=== PATIENT | female | born 1975 | race Caucasian/White ===

== ENCOUNTER 2022-07-12 18:39 | Inpatient (IN) | payer OTHER, SELFPAY ==
[~2022-07-12 18:39] MED LIST: Iopamidol-370 76% 500 ML 1 ML ONE
[2022-07-12] MEDS ORDERED: levETIRAcetam 500 MG/5 ML VIAL ONE (18:47)
[2022-07-12] MEDS ORDERED: LORazepam 2 MG/ML SYR.(CARPUJECT) ONE (18:50)
[2022-07-12 19:06] LABS: #Eosinphils 0.1 thou/uL (0.0-0.7); #Lymphocytes 1.6 thou/uL (1.20-3.40); #Monocytes 0.7 thou/uL (0.11-0.59); #Neutrophils 8.6 thou/uL (1.40-6.50); %Basophils 0.2 % (0.0-1.0); %Lymphocytes 14.2 % (21.0-51.0); %Monocytes 6.5 % (0.0-10.0); Hemoglobin 7.9 g/dL (12.0-16.0); Mean Corpuscular Volume 93.8 fl (78.0-98.0); Mean Platelet Volume 8.4 fL (7.4-10.4); Platelet Count 145 10x3/uL (130-400); RBC Distribution Width 15.9 % (11.5-14.5); Red Blood Cell (RBC) Count 2.62 mill/uL (4.20-5.40)
[2022-07-12] MEDS ORDERED: PROPOFOL 200 MG/20 ML VIAL ONE (19:19)
[2022-07-12] MEDS ORDERED: Phenylephrine 10 MG/ML VIAL ONE (19:19)
[2022-07-12] MEDS ORDERED: Rocuronium Bromide 10 MG/ML (10ML VIAL) ONE (19:19)
[2022-07-12 19:25] LABS: Acetaminophen Less than 10.0 mcg/mL (10.0-30.0); Alcohol 116 mg/dL (Less than 10); CK (CPK) 233 U/L (29-168); Salicylate Less than 8.0 mg/dL (15.0-30.0)
[2022-07-12 19:27] LABS: ALT (SGPT) 100 U/L (8-55); AST (SGOT) 214 U/L (5-34); Albumin 4.3 g/dL (3.5-5.0); Alkaline Phosphatase 245 U/L (40-110); Anion Gap 23 mmol/L (10-20); BUN (Urea Nitrogen) 11 mg/dL (7.0-18.7); Bilirubin, Total 1.7 mg/dL (0.2-1.2); Calc. Creatinine Clearance 0 mL/min (70-130); Calcium 8.1 mg/dL (7.8-10.44); Carbon Dioxide 21 mmol/L (22-29); Chloride 103 mmol/L (98-107); Estimated GFR 109; Globulin 3.6 g/dL (2.4-3.5); Glucose 261 mg/dL (70-105); Lipase 35 U/L (8-78); Potassium 3.5 mmol/L (3.5-5.1); Protein, Total 7.9 g/dL (6.0-8.3); Sodium 143 mmol/L (136-145)
[2022-07-12] MEDS ORDERED: fentaNYL PF 100 MCG/2 ML SYRINGE ONE (19:38)
[2022-07-12] MEDS ORDERED: Midazolam HCl 2 mg/2 ml Vial ONE ×2 (19:38→19:40)
[2022-07-12] MEDS ORDERED: FENTANYL 50 MCG/ML 1 ML VIAL ONE (19:40)
[2022-07-12] MEDS ORDERED: PROPOFOL 20 ML ONE (19:41)
[2022-07-12] MEDS ORDERED: niCARdipine 25 MG/10 ML VIAL ONE (19:45)
[2022-07-12] MEDS ORDERED: Mannitol 12.5 GM/50 ML ONE (19:45)
[2022-07-12] MEDS ORDERED: manNITOL 20% 500 ML ONE (19:45)
[2022-07-12] MEDS ORDERED: Dextrose 5% in Water 1,000 ML IV PRN (20:06)
[2022-07-12] MEDS ORDERED: TETANUS, DIPHTHERIA TOX,ADULT (TDVAX) 0.5 ML VIAL IM ONE (20:06)
[2022-07-12] MEDS ORDERED: Dextrose 50% Abboject 50 ML SYRINGE SLOW IVP PRN (20:06)
[2022-07-12] MEDS ORDERED: FENTANYL 500 MCG/10 ML VIAL 2,000 MCG in Sodium Chloride 0.9% 60 ML IV PRN (20:09)
[2022-07-12] MEDS ORDERED: Thrombin 5000 UNITS/5 ML VIAL ONE (20:12)
[2022-07-12 20:37] LABS: SARS-CoV-2 NAA Rapid Test Not Detected (NotDetected)
[2022-07-12] MEDS ORDERED: levETIRAcetam in NS 1,000 MG in Premix Bag 1 BAG IVPB SCH (21:00)
[2022-07-12] MEDS: Famotidine/PF 20 mg/2ml Vial SLOW IVP SCH (21:15)
[2022-07-12] MEDS: Sodium Chloride 0.9% 1,000 ML IV SCH (21:30)
[2022-07-12 21:43] LABS: Phosphorus 2.6 mg/dL (2.3-4.7)
[2022-07-12 21:44] LABS: Magnesium 1.4 mg/dL (1.6-2.6)
[2022-07-12] MEDS: Fentanyl CADD 100 ML IV PRN (21:54)
[2022-07-12] MEDS: Propofol 1,000 MG/100 ML VIAL IV PRN (21:55)
[2022-07-12] MEDS: hydrALAZINE 20 MG/ML VIAL SLOW IVP PRN (22:10)
[2022-07-12] MEDS: Ondansetron PF 4 MG/2 ML Vial IVP PRN (22:15)
[2022-07-12] MEDS: levETIRAcetam 500 MG/5 ML VIAL SLOW IVP SCH (22:16)
[2022-07-12] MEDS: CEFAZOLIN 2 GM in Sodium Chloride 0.9% 100 ML IVPB SCH (22:16)
[2022-07-12 22:22] LABS: Base Excess (BEa) -0.3 mEq/L (-2.0 to +3.0); CO2 Tension 44.3 mmHg (35.0-45.0); Calcium, Ionized (arterial) 0.95 mmol/L (1.12-1.30); Carboxyhemoglobin (COHb) 1.1 gm% (0.0-3.0); Hemoglobin (Hb) 6.9 g/dL (12.0-16.0); O2 Tension (PaO2), arterial 100.2 mmHg (80.0-100.0); Potassium - ABG Lab 4.21 mmol/L (3.70-5.30); pH, Arterial 7.37 (7.35-7.45)
[2022-07-12 22:23] LABS: ALV-art Gradient 200.925 mmHg (0-20); Puncture Site ART LINE
[2022-07-12] MEDS ORDERED: Calcium Chloride 1 GM/10 ML Abboject SYRINGE IVP SCH (22:45)
[2022-07-12] MEDS ORDERED: Magnesium Sulfate In Water 4 GM in Premix Bag 1 BAG IVPB SCH (23:00)
[2022-07-12 23:13] LABS: #Lymphocytes 0.4 thou/uL (1.20-3.40); #Monocytes 0.2 thou/uL (0.11-0.59); #Neutrophils 6.5 thou/uL (1.40-6.50); %Eosinophils 0.4 % (0.0-10.0); %Lymphocytes 5.9 % (21.0-51.0); %Monocytes 3.1 % (0.0-10.0); %Neutrophils 90.6 % (42.0-75.0); Hemoglobin 6.3 g/dL (12.0-16.0); Mean Corpuscular HGB CONC 32.4 g/dL (32.0-36.0); Mean Corpuscular Hemoglobin 30.1 pg (27.0-31.0); Mean Corpuscular Volume 93.1 fl (78.0-98.0); Platelet Count 95 10x3/uL (130-400); RBC Distribution Width 15.8 % (11.5-14.5); Red Blood Cell (RBC) Count 2.08 mill/uL (4.20-5.40); White Blood Cell (WBC) Count 7.2 10x3/uL (4.8-10.8)
[2022-07-12 23:16] LABS: INR-International Normal Ratio 1.1; Prothrombin Time 14.3 sec (12.0-14.7)
[2022-07-12] MEDS: Calcium Chloride 13.6 MEQ in Sodium Chloride 0.9% 100 ML IVPB SCH (23:32)
[2022-07-12 23:51] LABS: Anion Gap 16 mmol/L (10-20); BUN (Urea Nitrogen) 8 mg/dL (7.0-18.7); Calc. Creatinine Clearance 0 mL/min (70-130); Calcium 7.4 mg/dL (7.8-10.44); Carbon Dioxide 24 mmol/L (22-29); Chloride 106 mmol/L (98-107); Estimated GFR 109; Glucose 244 mg/dL (70-105); Magnesium 1.5 mg/dL (1.6-2.6); Phosphorus 3.4 mg/dL (2.3-4.7); Potassium 4.1 mmol/L (3.5-5.1); Sodium 142 mmol/L (136-145)
[2022-07-13] MEDS: HumaLOG 300 UNITS/3 ML VIAL SC PRN ×8 (00:20→22:29)
[2022-07-13] MEDS: Calcium Chloride 13.6 MEQ in Sodium Chloride 0.9% 100 ML IVPB SCH ×4 (01:00→06:27)
[2022-07-13] MEDS: Sodium Chloride 0.9% 1,000 ML IV SCH ×3 (02:05→19:38)
[2022-07-13] MEDS ORDERED: fentaNYL PF 100 MCG/2 ML SYRINGE ONE (02:20)
[2022-07-13] MEDS ORDERED: Mannitol 12.5 GM/50 ML IV SCH (02:30)
[2022-07-13 02:32] LABS: #Basophils 0.1 thou/uL (0.0-0.2); #Lymphocytes 0.3 thou/uL (1.20-3.40); #Monocytes 0.4 thou/uL (0.11-0.59); #Neutrophils 9.1 thou/uL (1.40-6.50); %Basophils 1.4 % (0.0-1.0); %Eosinophils 0.3 % (0.0-10.0); %Lymphocytes 2.6 % (21.0-51.0); %Monocytes 3.8 % (0.0-10.0); %Neutrophils 91.9 % (42.0-75.0); Hemoglobin 8.4 g/dL (12.0-16.0); Mean Corpuscular HGB CONC 32.6 g/dL (32.0-36.0); Mean Corpuscular Hemoglobin 30.1 pg (27.0-31.0); Mean Corpuscular Volume 92.2 fl (78.0-98.0); Mean Platelet Volume 8.5 fL (7.4-10.4); Platelet Count 111 10x3/uL (130-400); RBC Distribution Width 14.8 % (11.5-14.5); Red Blood Cell (RBC) Count 2.78 mill/uL (4.20-5.40); White Blood Cell (WBC) Count 9.9 10x3/uL (4.8-10.8)
[2022-07-13 02:37] LABS: INR-International Normal Ratio 1.1; PTT 28.2 sec (22.9-36.1); Prothrombin Time 14.4 sec (12.0-14.7)
[2022-07-13] MEDS ORDERED: PROPOFOL 200 MG/20 ML VIAL ONE (02:51)
[2022-07-13] MEDS ORDERED: Rocuronium Bromide 10 MG/ML (10ML VIAL) ONE (02:51)
[2022-07-13 02:55] LABS: Anion Gap 20 mmol/L (10-20); BUN (Urea Nitrogen) 10 mg/dL (7.0-18.7); Calc. Creatinine Clearance 127 mL/min (70-130); Calcium 7.5 mg/dL (7.8-10.44); Carbon Dioxide 21 mmol/L (22-29); Chloride 107 mmol/L (98-107); Estimated GFR 110; Glucose 267 mg/dL (70-105); Magnesium 2.6 mg/dL (1.6-2.6); Potassium 3.7 mmol/L (3.5-5.1); Sodium 144 mmol/L (136-145)
[2022-07-13] MEDS: hydrALAZINE 20 MG/ML VIAL SLOW IVP PRN (04:36)
[2022-07-13] MEDS: CEFAZOLIN 2 GM in Sodium Chloride 0.9% 100 ML IVPB SCH ×3 (04:36→21:13)
[2022-07-13 05:18] LABS: Actual Bicarbonate (HCO3a) 27.5 mEq/L (22-28); Base Excess (BEa) 2.6 mEq/L (-2.0 to +3.0); CO2 Tension 43.9 mmHg (35.0-45.0); Calcium, Ionized (arterial) 0.87 mmol/L (1.12-1.30); Carboxyhemoglobin (COHb) 0.8 gm% (0.0-3.0); Hemoglobin (Hb) 9.8 g/dL (12.0-16.0); O2 Tension (PaO2), arterial 85.6 mmHg (80.0-100.0); Potassium - ABG Lab 3.97 mmol/L (3.70-5.30); pH, Arterial 7.41 (7.35-7.45)
[2022-07-13 05:19] LABS: Puncture Site ARTLINE
[2022-07-13 05:20] LABS: ALV-art Gradient 144.725 mmHg (0-20)
[2022-07-13] MEDS: Propofol 1,000 MG/100 ML VIAL IV PRN ×4 (05:42→23:39)
[2022-07-13 07:51] LABS: Actual Bicarbonate (HCO3a) 26.5 mEq/L (22-28); Base Excess (BEa) 2.3 mEq/L (-2.0 to +3.0); CO2 Tension 39.5 mmHg (35.0-45.0); Calcium, Ionized (arterial) 1.03 mmol/L (1.12-1.30); Hemoglobin (Hb) 8.9 g/dL (12.0-16.0); O2 Tension (PaO2), arterial 94.4 mmHg (80.0-100.0); Potassium - ABG Lab 3.89 mmol/L (3.70-5.30); pH, Arterial 7.45 (7.35-7.45)
[2022-07-13 07:53] LABS: ALV-art Gradient 141.425 mmHg (0-20); Puncture Site Arterial Line
[2022-07-13] MEDS ORDERED: Calcium Chloride 1 GM/10 ML Abboject SYRINGE IVP SCH (08:00)
[2022-07-13 08:46] LABS: #Lymphocytes 0.3 thou/uL (1.20-3.40); #Monocytes 0.8 thou/uL (0.11-0.59); #Neutrophils 9.7 thou/uL (1.40-6.50); %Basophils 0.2 % (0.0-1.0); %Eosinophils 0.1 % (0.0-10.0); %Lymphocytes 2.8 % (21.0-51.0); %Monocytes 7.3 % (0.0-10.0); %Neutrophils 89.7 % (42.0-75.0); Hemoglobin 8.1 g/dL (12.0-16.0); Mean Corpuscular Hemoglobin 29.8 pg (27.0-31.0); Mean Corpuscular Volume 93.3 fl (78.0-98.0); Mean Platelet Volume 8.3 fL (7.4-10.4); Platelet Count 185 10x3/uL (130-400); RBC Distribution Width 14.6 % (11.5-14.5); Red Blood Cell (RBC) Count 2.73 mill/uL (4.20-5.40); White Blood Cell (WBC) Count 10.9 10x3/uL (4.8-10.8)
[2022-07-13 08:50] LABS: Anion Gap 13 mmol/L (10-20); BUN (Urea Nitrogen) 10 mg/dL (7.0-18.7); Calc. Creatinine Clearance 120 mL/min (70-130); Calcium 8.3 mg/dL (7.8-10.44); Carbon Dioxide 27 mmol/L (22-29); Chloride 108 mmol/L (98-107); Estimated GFR 109; Glucose 258 mg/dL (70-105); Magnesium 2.8 mg/dL (1.6-2.6); Phosphorus 2.9 mg/dL (2.3-4.7); Potassium 3.9 mmol/L (3.5-5.1); Sodium 144 mmol/L (136-145)
[2022-07-13] MEDS: levETIRAcetam 500 MG/5 ML VIAL SLOW IVP SCH ×2 (09:36→19:26)
[2022-07-13] MEDS: Famotidine/PF 20 mg/2ml Vial SLOW IVP SCH ×2 (09:36→19:25)
[2022-07-13] MEDS: Folic Acid 1 MG TAB PER TUBE SCH (09:37)
[2022-07-13] MEDS: Thiamine HCl 200 MG/2 ML VIAL SLOW IVP SCH (09:39)
[2022-07-13 18:23] LABS: #Lymphocytes 0.9 thou/uL (1.20-3.40); #Monocytes 0.9 thou/uL (0.11-0.59); #Neutrophils 10.4 thou/uL (1.40-6.50); %Basophils 0.2 % (0.0-1.0); %Eosinophils 0.1 % (0.0-10.0); %Monocytes 7.3 % (0.0-10.0); %Neutrophils 85.4 % (42.0-75.0); Hemoglobin 7.2 g/dL (12.0-16.0); Mean Corpuscular HGB CONC 32.9 g/dL (32.0-36.0); Mean Corpuscular Hemoglobin 31.4 pg (27.0-31.0); Mean Corpuscular Volume 95.6 fl (78.0-98.0); Mean Platelet Volume 8.4 fL (7.4-10.4); Platelet Count 160 10x3/uL (130-400); RBC Distribution Width 14.6 % (11.5-14.5); White Blood Cell (WBC) Count 12.2 10x3/uL (4.8-10.8)
[2022-07-13 18:40] LABS: PTT 30.6 sec (22.9-36.1)
[2022-07-13 18:43] LABS: Anion Gap 13 mmol/L (10-20); BUN (Urea Nitrogen) 14 mg/dL (7.0-18.7); Calc. Creatinine Clearance 120 mL/min (70-130); Calcium 8.2 mg/dL (7.8-10.44); Carbon Dioxide 26 mmol/L (22-29); Chloride 113 mmol/L (98-107); Estimated GFR 109; Glucose 168 mg/dL (70-105); Magnesium 2.3 mg/dL (1.6-2.6); Sodium 148 mmol/L (136-145)
[2022-07-13] MEDS: Fentanyl CADD 100 ML IV PRN (18:53)
[2022-07-13] MEDS ORDERED: Potassium Phosphate 15 MMOL in Sodium Chloride 0.9% 250 ML 250 ML IVPB SCH (19:15)
[2022-07-13] MEDS: Senokot S 8.6-50 MG TAB PO SCH (19:25)
[2022-07-13] MEDS: Oxazepam 10 MG CAP PO SCH (19:26)
[2022-07-13] MEDS: Ondansetron PF 4 MG/2 ML Vial IVP PRN (19:26)
[2022-07-13] MEDS ORDERED: Oxazepam 10 MG CAP PO SCH (22:00)
[2022-07-14] MEDS ORDERED: Sodium Chloride 0.9% 1,000 ML IV SCH (01:15)
[2022-07-14] MEDS ORDERED: Hydrocortisone Sod Succ/PF 100 mg/2 ml Vial IVP SCH (01:15)
[2022-07-14] MEDS ORDERED: Midazolam HCl 2 mg/2 ml Vial SLOW IVP SCH ×2 (03:45→09:15)
[2022-07-14 04:14] LABS: #Lymphocytes 0.5 thou/uL (1.20-3.40); #Monocytes 0.6 thou/uL (0.11-0.59); #Neutrophils 7.2 thou/uL (1.40-6.50); %Basophils 0.5 % (0.0-1.0); %Eosinophils 0.2 % (0.0-10.0); %Lymphocytes 5.9 % (21.0-51.0); %Monocytes 6.8 % (0.0-10.0); %Neutrophils 86.7 % (42.0-75.0); Mean Corpuscular Hemoglobin 30.8 pg (27.0-31.0); Mean Corpuscular Volume 96.1 fl (78.0-98.0); Mean Platelet Volume 8.7 fL (7.4-10.4); Platelet Count 111 10x3/uL (130-400); RBC Distribution Width 14.6 % (11.5-14.5); Red Blood Cell (RBC) Count 2.27 mill/uL (4.20-5.40); White Blood Cell (WBC) Count 8.3 10x3/uL (4.8-10.8)
[2022-07-14] MEDS: Oxazepam 10 MG CAP PO SCH ×3 (04:53→20:01)
[2022-07-14] MEDS: CEFAZOLIN 2 GM in Sodium Chloride 0.9% 100 ML IVPB SCH ×3 (04:53→21:34)
[2022-07-14] MEDS: Sodium Chloride 0.9% 1,000 ML IV SCH (04:54)
[2022-07-14 04:55] LABS: Iron 268 ug/dL (50-170); Iron Binding Capacity, Total 256 mcg/dL (265-497); Phosphorus 2.4 mg/dL (2.3-4.7)
[2022-07-14 04:59] LABS: ALT (SGPT) 37 U/L (8-55); AST (SGOT) 59 U/L (5-34); Alkaline Phosphatase 133 U/L (40-110); Anion Gap 11 mmol/L (10-20); BUN (Urea Nitrogen) 13 mg/dL (7.0-18.7); Bilirubin, Total 1.5 mg/dL (0.2-1.2); Calc. Creatinine Clearance 140 mL/min (70-130); Calcium 7.3 mg/dL (7.8-10.44); Carbon Dioxide 24 mmol/L (22-29); Chloride 115 mmol/L (98-107); Estimated GFR 113; Globulin 2.5 g/dL (2.4-3.5); Glucose 178 mg/dL (70-105); Iron 268 ug/dL (50-170); Iron Binding Capacity, Total 258 mcg/dL (265-497); Potassium 3.9 mmol/L (3.5-5.1); Protein, Total 5.5 g/dL (6.0-8.3); Sodium 146 mmol/L (136-145)
[2022-07-14] MEDS: HumaLOG 300 UNITS/3 ML VIAL SC PRN ×3 (06:09→18:17)
[2022-07-14] MEDS: Fentanyl CADD 100 ML IV PRN (06:26)
[2022-07-14] MEDS: Propofol 1,000 MG/100 ML VIAL IV PRN (07:52)
[2022-07-14] MEDS: Hydrocortisone Sod Succ/PF 100 mg/2 ml Vial IVP SCH ×3 (08:08→19:57)
[2022-07-14] MEDS: Lactated Ringer's 1,000 ML IV SCH ×2 (08:10→16:30)
[2022-07-14] MEDS: Folic Acid 1 MG TAB PER TUBE SCH (08:11)
[2022-07-14] MEDS: Famotidine/PF 20 mg/2ml Vial SLOW IVP SCH (08:11)
[2022-07-14] MEDS: Multivitamin W/ Minerals 1 TAB PO SCH (08:11)
[2022-07-14] MEDS: Senokot S 8.6-50 MG TAB PO SCH ×2 (08:11→20:01)
[2022-07-14] MEDS: Thiamine HCl 200 MG/2 ML VIAL SLOW IVP SCH (08:12)
[2022-07-14] MEDS: levETIRAcetam 500 MG/5 ML VIAL SLOW IVP SCH ×2 (08:12→20:01)
[2022-07-14] MEDS: Polyethylene Glycol 3350 17 GM Packet PO SCH (08:12)
[2022-07-14] MEDS ORDERED: Potassium Phosphate 30 MMOL in Sodium Chloride 0.9% 250 ML 250 ML IVPB SCH (08:30)
[2022-07-14 08:36] LABS: Actual Bicarbonate (HCO3a) 27.6 mEq/L (22-28); Base Excess (BEa) 2.1 mEq/L (-2.0 to +3.0); CO2 Tension 48.1 mmHg (35.0-45.0); Calcium, Ionized (arterial) 0.97 mmol/L (1.12-1.30); Hemoglobin (Hb) 7.5 g/dL (12.0-16.0); O2 Tension (PaO2), arterial 70.2 mmHg (80.0-100.0); Potassium - ABG Lab 3.73 mmol/L (3.70-5.30); pH, Arterial 7.38 (7.35-7.45)
[2022-07-14 08:37] LABS: ALV-art Gradient 154.875 mmHg (0-20); Puncture Site Arterial Line
[2022-07-14] MEDS ORDERED: Midazolam HCl 2 mg/2 ml Vial ONE (09:08)
[2022-07-14] MEDS ORDERED: Haloperidol Lactate 5 MG/ML VIAL ONE (09:09)
[2022-07-14] MEDS ORDERED: Calcium Chloride 1 GM/10 ML Abboject SYRINGE ONE (09:13)
[2022-07-14] MEDS ORDERED: Haloperidol Lactate 5 MG/ML VIAL SLOW IVP SCH (09:15)
[2022-07-14] MEDS ORDERED: Calcium Chloride 1 GM/10 ML Abboject SYRINGE IVP SCH (09:15)
[2022-07-14] MEDS: carBAMazepine 200 MG TAB PO SCH ×2 (10:30→17:14)
[2022-07-14] MEDS ORDERED: Morphine 4 MG/ML VIAL SLOW IVP PRN (19:40)
[2022-07-14] MEDS: Famotidine 20 MG TAB PO SCH (20:01)
[2022-07-14] MEDS: Acetaminophen/Codeine 30-300mg Tablet PO PRN (21:34)
[2022-07-14] MEDS: Acetaminophen 500 MG TAB PO SCH (23:18)
[2022-07-15] MEDS: Hydrocortisone Sod Succ/PF 100 mg/2 ml Vial IVP SCH ×2 (01:15→06:29)
[2022-07-15] MEDS: Oxazepam 10 MG CAP PO SCH ×3 (03:20→20:30)
[2022-07-15] MEDS: Lactated Ringer's 1,000 ML IV SCH (03:23)
[2022-07-15] MEDS: Acetaminophen/Codeine 30-300mg Tablet PO PRN (03:24)
[2022-07-15] MEDS: HumaLOG 300 UNITS/3 ML VIAL SC PRN ×5 (03:42→23:27)
[2022-07-15 04:35] LABS: #Lymphocytes 0.7 thou/uL (1.20-3.40); #Monocytes 0.6 thou/uL (0.11-0.59); #Neutrophils 10.1 thou/uL (1.40-6.50); %Eosinophils 0.3 % (0.0-10.0); %Lymphocytes 6.1 % (21.0-51.0); %Monocytes 5.6 % (0.0-10.0); Hemoglobin 8.7 g/dL (12.0-16.0); Mean Corpuscular HGB CONC 32.7 g/dL (32.0-36.0); Mean Corpuscular Hemoglobin 30.9 pg (27.0-31.0); Mean Corpuscular Volume 94.6 fl (78.0-98.0); Platelet Count 142 10x3/uL (130-400); RBC Distribution Width 14.9 % (11.5-14.5); Red Blood Cell (RBC) Count 2.83 mill/uL (4.20-5.40); White Blood Cell (WBC) Count 11.4 10x3/uL (4.8-10.8)
[2022-07-15 05:07] LABS: Anion Gap 14 mmol/L (10-20); BUN (Urea Nitrogen) 9 mg/dL (7.0-18.7); Calc. Creatinine Clearance 134 mL/min (70-130); Calcium 8.7 mg/dL (7.8-10.44); Carbon Dioxide 25 mmol/L (22-29); Chloride 108 mmol/L (98-107); Estimated GFR 111; Glucose 198 mg/dL (70-105); Magnesium 1.6 mg/dL (1.6-2.6); Phosphorus 2.2 mg/dL (2.3-4.7); Potassium 3.5 mmol/L (3.5-5.1); Sodium 143 mmol/L (136-145)
[2022-07-15] MEDS: Acetaminophen 500 MG TAB PO SCH ×2 (05:18→12:10)
[2022-07-15] MEDS: CEFAZOLIN 2 GM in Sodium Chloride 0.9% 100 ML IVPB SCH ×3 (05:19→21:20)
[2022-07-15] MEDS: hydrALAZINE 20 MG/ML VIAL SLOW IVP PRN (05:23)
[2022-07-15] MEDS ORDERED: Potassium Phosphate 30 MMOL, Magnesium Sulfate 3 GM in Sodium Chloride 0.9% 250 ML 250 ML IVPB SCH (08:30)
[2022-07-15] MEDS: carBAMazepine 200 MG TAB PO SCH ×3 (08:35→17:54)
[2022-07-15] MEDS: Polyethylene Glycol 3350 17 GM Packet PO SCH ×2 (08:35→08:37)
[2022-07-15] MEDS: Multivitamin W/ Minerals 1 TAB PO SCH (08:36)
[2022-07-15] MEDS: Famotidine 20 MG TAB PO SCH ×2 (08:36→20:30)
[2022-07-15] MEDS: Senokot S 8.6-50 MG TAB PO SCH ×2 (08:36→20:31)
[2022-07-15] MEDS: levETIRAcetam 500 MG/5 ML VIAL SLOW IVP SCH ×2 (08:37→20:31)
[2022-07-15] MEDS: Folic Acid 1 MG TAB PER TUBE SCH (08:37)
[2022-07-15] MEDS: Thiamine HCl 200 MG/2 ML VIAL SLOW IVP SCH (08:59)
[2022-07-15] MEDS: cloNIDine 0.2 MG TAB PO SCH ×4 (12:13→23:12)
[2022-07-15] MEDS ORDERED: Acetaminophen 325 MG TAB PO SCH (12:15)
[2022-07-15] MEDS ORDERED: Furosemide 20 MG/2 ML VIAL SLOW IVP SCH (14:45)
[2022-07-15] MEDS: Acetaminophen 325 MG TAB PO SCH ×2 (17:54→23:11)
[2022-07-16] MEDS ORDERED: Haloperidol Lactate 5 MG/ML VIAL SLOW IVP PRN (01:47)
[2022-07-16] MEDS: HumaLOG 300 UNITS/3 ML VIAL SC PRN ×2 (03:35→12:21)
[2022-07-16] MEDS: Oxazepam 10 MG CAP PO SCH ×3 (03:40→21:07)
[2022-07-16 04:55] LABS: #Eosinphils 0.1 thou/uL (0.0-0.7); #Monocytes 0.8 thou/uL (0.11-0.59); #Neutrophils 8.8 thou/uL (1.40-6.50); %Basophils 0.1 % (0.0-1.0); %Eosinophils 0.9 % (0.0-10.0); %Lymphocytes 9.6 % (21.0-51.0); %Monocytes 7.8 % (0.0-10.0); %Neutrophils 81.7 % (42.0-75.0); Hemoglobin 9.8 g/dL (12.0-16.0); Mean Corpuscular HGB CONC 33.5 g/dL (32.0-36.0); Mean Corpuscular Hemoglobin 31.5 pg (27.0-31.0); Mean Corpuscular Volume 93.8 fl (78.0-98.0); Mean Platelet Volume 9.1 fL (7.4-10.4); Platelet Count 164 10x3/uL (130-400); RBC Distribution Width 14.6 % (11.5-14.5); Red Blood Cell (RBC) Count 3.12 mill/uL (4.20-5.40); White Blood Cell (WBC) Count 10.8 10x3/uL (4.8-10.8)
[2022-07-16 05:15] LABS: Anion Gap 16 mmol/L (10-20); BUN (Urea Nitrogen) 6 mg/dL (7.0-18.7); Calc. Creatinine Clearance 183 mL/min (70-130); Calcium 8.9 mg/dL (7.8-10.44); Carbon Dioxide 29 mmol/L (22-29); Chloride 94 mmol/L (98-107); Estimated GFR 114; Glucose 180 mg/dL (70-105); Magnesium 1.7 mg/dL (1.6-2.6); Phosphorus 2.1 mg/dL (2.3-4.7); Sodium 136 mmol/L (136-145)
[2022-07-16] MEDS: Acetaminophen 325 MG TAB PO SCH ×4 (05:41→23:05)
[2022-07-16] MEDS: CEFAZOLIN 2 GM in Sodium Chloride 0.9% 100 ML IVPB SCH ×2 (05:43→14:45)
[2022-07-16] MEDS: cloNIDine 0.2 MG TAB PO SCH ×4 (06:26→23:08)
[2022-07-16] MEDS: Furosemide 20 MG/2 ML VIAL SLOW IVP SCH ×2 (06:27→18:17)
[2022-07-16] MEDS ORDERED: Magnesium 2 GM/50 ML(in water) 2 GM in Premix Bag 1 BAG IVPB SCH (07:15)
[2022-07-16] MEDS ORDERED: Potassium Phosphate 30 MMOL, Magnesium Sulfate 2 GM in Sodium Chloride 0.9% 250 ML 250 ML IVPB SCH (08:00)
[2022-07-16] MEDS: Folic Acid 1 MG TAB PER TUBE SCH (08:58)
[2022-07-16] MEDS: Senokot S 8.6-50 MG TAB PO SCH ×2 (08:58→21:07)
[2022-07-16] MEDS: Thiamine 100 MG TAB PO SCH (08:58)
[2022-07-16] MEDS: Multivitamin W/ Minerals 1 TAB PO SCH (08:58)
[2022-07-16] MEDS: Famotidine 20 MG TAB PO SCH ×2 (08:58→21:07)
[2022-07-16] MEDS: Polyethylene Glycol 3350 17 GM Packet PO SCH (08:58)
[2022-07-16] MEDS: carBAMazepine 200 MG TAB PO SCH ×3 (08:58→18:09)
[2022-07-16] MEDS: levETIRAcetam 500 MG/5 ML VIAL SLOW IVP SCH ×2 (08:59→21:06)
[2022-07-16 11:16] VITALS: BMI 24.7
[2022-07-17] MEDS: Acetaminophen 325 MG TAB PO SCH ×4 (05:09→23:33)
[2022-07-17] MEDS: Oxazepam 10 MG CAP PO SCH ×3 (05:10→21:50)
[2022-07-17] MEDS: cloNIDine 0.2 MG TAB PO SCH ×4 (05:21→23:34)
[2022-07-17 06:11] LABS: Hemoglobin 9.9 g/dL (12.0-16.0); Mean Corpuscular Hemoglobin 31.3 pg (27.0-31.0); Mean Platelet Volume 9.4 fL (7.4-10.4); Platelet Count 162 10x3/uL (130-400); RBC Distribution Width 15.3 % (11.5-14.5); Red Blood Cell (RBC) Count 3.15 mill/uL (4.20-5.40); White Blood Cell (WBC) Count 6.2 10x3/uL (4.8-10.8)
[2022-07-17 06:36] LABS: Band 3 % (5-11); Eosinophils 3 % (0-10); Lymphocytes 24 % (21-51); MDiff Complete? YES; Monocytes 8 % (0-10); Neutrophil 62 % (42-75)
[2022-07-17 06:52] LABS: Anion Gap 11 mmol/L (10-20); BUN (Urea Nitrogen) 9 mg/dL (7.0-18.7); Calc. Creatinine Clearance 133 mL/min (70-130); Calcium 8.6 mg/dL (7.8-10.44); Carbon Dioxide 33 mmol/L (22-29); Chloride 99 mmol/L (98-107); Estimated GFR 113; Glucose 160 mg/dL (70-105); Magnesium 1.9 mg/dL (1.6-2.6); Phosphorus 3.8 mg/dL (2.3-4.7); Potassium 2.9 mmol/L (3.5-5.1); Sodium 140 mmol/L (136-145)
[2022-07-17] MEDS ORDERED: Potassium Chloride 20 MEQ TAB PO SCH (09:00)
[2022-07-17] MEDS: carBAMazepine 200 MG TAB PO SCH ×3 (09:21→17:33)
[2022-07-17] MEDS: Senokot S 8.6-50 MG TAB PO SCH ×2 (09:22→22:21)
[2022-07-17] MEDS: Famotidine 20 MG TAB PO SCH ×2 (09:22→21:50)
[2022-07-17] MEDS: Thiamine 100 MG TAB PO SCH (09:22)
[2022-07-17] MEDS: Folic Acid 1 MG TAB PER TUBE SCH (09:22)
[2022-07-17] MEDS: Polyethylene Glycol 3350 17 GM Packet PO SCH (09:22)
[2022-07-17] MEDS: Multivitamin W/ Minerals 1 TAB PO SCH (09:22)
[2022-07-17] MEDS: levETIRAcetam 500 MG/5 ML VIAL SLOW IVP SCH ×2 (09:23→21:51)
[2022-07-17 12:37] LABS: Hemoglobin A1c 5.6 % (4.0-6.0)
[2022-07-17] MEDS: Acetaminophen/Codeine 30-300mg Tablet PO PRN ×2 (17:34→23:31)
[2022-07-17] MEDS: HumaLOG 300 UNITS/3 ML VIAL SC PRN ×2 (17:36→22:11)
[2022-07-18] MEDS: hydrALAZINE 20 MG/ML VIAL SLOW IVP PRN (03:33)
[2022-07-18] MEDS: Oxazepam 10 MG CAP PO SCH ×3 (03:36→20:11)
[2022-07-18] MEDS: Acetaminophen 325 MG TAB PO SCH ×3 (06:15→17:17)
[2022-07-18] MEDS: cloNIDine 0.2 MG TAB PO SCH ×3 (06:17→17:16)
[2022-07-18] MEDS: HumaLOG 300 UNITS/3 ML VIAL SC PRN ×4 (06:23→20:17)
[2022-07-18 06:40] LABS: Anion Gap 15 mmol/L (10-20); BUN (Urea Nitrogen) 8 mg/dL (7.0-18.7); Calc. Creatinine Clearance 131 mL/min (70-130); Carbon Dioxide 25 mmol/L (22-29); Chloride 101 mmol/L (98-107); Estimated GFR 113; Glucose 179 mg/dL (70-105); Magnesium 1.6 mg/dL (1.6-2.6); Phosphorus 2.7 mg/dL (2.3-4.7); Potassium 3.5 mmol/L (3.5-5.1); Sodium 137 mmol/L (136-145)
[2022-07-18] MEDS ORDERED: Magnesium 2 GM/50 ML(in water) 2 GM in Premix Bag 1 BAG IVPB SCH (09:00)
[2022-07-18] MEDS ORDERED: Potassium Phosphate 30 MMOL, Magnesium Sulfate 2 GM in Sodium Chloride 0.9% 250 ML IVPB SCH (09:00)
[2022-07-18] MEDS: levETIRAcetam 500 MG/5 ML VIAL SLOW IVP SCH ×2 (09:00→20:16)
[2022-07-18] MEDS: carBAMazepine 200 MG TAB PO SCH ×3 (09:01→17:18)
[2022-07-18] MEDS: Thiamine 100 MG TAB PO SCH (09:01)
[2022-07-18] MEDS: Multivitamin W/ Minerals 1 TAB PO SCH (09:01)
[2022-07-18] MEDS: Famotidine 20 MG TAB PO SCH ×2 (09:01→20:11)
[2022-07-18] MEDS: Folic Acid 1 MG TAB PER TUBE SCH (09:01)
[2022-07-18] MEDS: Senokot S 8.6-50 MG TAB PO SCH ×2 (09:02→21:35)
[2022-07-18] MEDS: Polyethylene Glycol 3350 17 GM Packet PO SCH (09:02)
[2022-07-18] MEDS ORDERED: Cepastat Lozenges 1 LOZ PO PRN (13:53)
[2022-07-18] MEDS: risperiDONE 1 MG TAB PO SCH (20:11)
[2022-07-19] MEDS: Acetaminophen 325 MG TAB PO SCH ×2 (00:46→05:50)
[2022-07-19] MEDS: cloNIDine 0.2 MG TAB PO SCH ×3 (00:46→12:50)
[2022-07-19] MEDS: hydrALAZINE 20 MG/ML VIAL SLOW IVP PRN (00:48)
[2022-07-19] MEDS: Acetaminophen/Codeine 30-300mg Tablet PO PRN ×2 (04:46→09:31)
[2022-07-19] MEDS: Oxazepam 10 MG CAP PO SCH ×2 (04:46→12:49)
[2022-07-19] MEDS: HumaLOG 300 UNITS/3 ML VIAL SC PRN ×2 (06:04→12:55)
[2022-07-19] MEDS: Folic Acid 1 MG TAB PER TUBE SCH (08:34)
[2022-07-19] MEDS: Multivitamin W/ Minerals 1 TAB PO SCH (08:34)
[2022-07-19] MEDS: Famotidine 20 MG TAB PO SCH (08:35)
[2022-07-19] MEDS: Thiamine 100 MG TAB PO SCH (08:35)
[2022-07-19] MEDS: risperiDONE 1 MG TAB PO SCH (08:35)
[2022-07-19] MEDS: carBAMazepine 200 MG TAB PO SCH ×2 (08:35→12:48)
[2022-07-19] MEDS: levETIRAcetam 500 MG/5 ML VIAL SLOW IVP SCH (08:37)
[2022-07-19] MEDS ORDERED: Acetaminophen/Codeine 30-300mg Tablet PO SCH (10:00)
[2022-07-19] MEDS: Senokot S 8.6-50 MG TAB PO SCH (11:21)
[2022-07-19] MEDS: Polyethylene Glycol 3350 17 GM Packet PO SCH (11:21)
[2022-07-19] MEDS ORDERED: Acetaminophen 325 MG TAB PO SCH (12:00)
[2022-07-19 12:06] VITALS: TEMP 98.4
[2022-07-19 12:15] VITALS: BP 159/90
[2022-07-19] MEDS ORDERED: metFORMIN 500 MG TAB PO SCH (17:00)
[2022-07-19] MEDS ORDERED: levETIRAcetam 500 MG TAB PO SCH (21:00)
== END 2022-07-19 14:15 | disposition home or self-care (01) | DRG 25 ==
LOC: ERS 18:39 → SDC/OP 20:34 → CCU 21:41 → SURG A 07-16 14:33
PROVIDERS: ADMIT Emergency Medicine; ATTEND Emergency Medicine
PROC: 00C40ZZ Extirpation of Matter from Intracranial Subdural Space, Open Approach (ICD-10-PCS; principal; 2022-07-12)
PROC: 0BH17EZ Insertion of Endotracheal Airway into Trachea, Via Natural or Artificial Opening (ICD-10-PCS; 2022-07-12)
PROC: 0D9670Z Drainage of Stomach with Drainage Device, Via Natural or Artificial Opening (ICD-10-PCS; 2022-07-12)
PROC: 5A1945Z Respiratory Ventilation, 24-96 Consecutive Hours (ICD-10-PCS; 2022-07-12)
PROC: 30233N1 Transfusion of Nonautologous Red Blood Cells into Peripheral Vein, Percutaneous Approach (ICD-10-PCS; 2022-07-12)
PROC: 00C40ZZ Extirpation of Matter from Intracranial Subdural Space, Open Approach (ICD-10-PCS; 2022-07-13)
PROC: 0NR00JZ Replacement of Skull with Synthetic Substitute, Open Approach (ICD-10-PCS; 2022-07-13)
PROC: 6A550Z2 Pheresis of Platelets, Single (ICD-10-PCS; 2022-07-13)
DX: S06.5XAA Traumatic subdural hemorrhage with loss of consciousness status unknown, initial encounter (principal); I63.9 Cerebral infarction, unspecified; J96.00 Acute respiratory failure, unspecified whether with hypoxia or hypercapnia; S06.A1XA Traumatic brain compression with herniation, initial encounter; D62 Acute posthemorrhagic anemia; Z20.822 Contact with and (suspected) exposure to COVID-19; V86.59XA Driver of other special all-terrain or other off-road motor vehicle injured in nontraffic accident, initial encounter; R40.2353 Coma scale, best motor response, localizes pain, at hospital admission; R40.2223 Coma scale, best verbal response, incomprehensible words, at hospital admission; R40.2113 Coma scale, eyes open, never, at hospital admission; F10.129 Alcohol abuse with intoxication, unspecified; S06.1XAA Traumatic cerebral edema with loss of consciousness status unknown, initial encounter; R73.9 Hyperglycemia, unspecified; S70.01XA Contusion of right hip, initial encounter; R56.9 Unspecified convulsions; Y90.5 Blood alcohol level of 100-119 mg/100 ml; E87.6 Hypokalemia; E83.51 Hypocalcemia; E83.39 Other disorders of phosphorus metabolism; E83.42 Hypomagnesemia
CPT/HCPCS: 36415; 36416; 36430; 70450; 71045; 71260; 72125; 74018; 74177; 80048; 80053; 80307; 82140; 82533; 82550; 82805; 83036; 83540; 83550; 83690; 83735; 83930; 84100; 84146; 84443; 84484; 85025; 85384; 85610; 86850; 86900; 86901; 87811; 93005; 93970; 94002; 94003; 94640; C1713; G0390; J0360; J1630; J1720; J1815; J1940; J1953; J2060; J2150; J2250; J2370; J2405; J2704; J3010; J3411; J3475; J3490; J7030; J7050; J7120; J7620; J7799; P9016; P9035; Q9967; S0028; U0002

== ENCOUNTER 2022-08-05 07:43 | Outpatient (CLI) | payer OTHER | END 2022-08-05 07:44 | disposition home or self-care (01) | LOC: CT 07:43 | PROVIDERS: ATTEND Neurological Surgery | DX: S06.5XAA Traumatic subdural hemorrhage with loss of consciousness status unknown, initial encounter (principal); R09.89 Other specified symptoms and signs involving the circulatory and respiratory systems; Z98.890 Other specified postprocedural states | CPT/HCPCS: 70450 ==

== ENCOUNTER 2022-10-28 12:51 | Outpatient (CLI) | payer OTHER | END 2022-10-28 12:52 | disposition home or self-care (01) | LOC: BICCT 12:51 | PROVIDERS: ATTEND Neurological Surgery | DX: R56.9 Unspecified convulsions (principal); S06.890D Other specified intracranial injury without loss of consciousness, subsequent encounter | CPT/HCPCS: 70450 ==